=== PATIENT | male | born 1945 | race Caucasian/White ===

== ENCOUNTER 2020-09-02 06:34 | Day surgery (SDC) | payer MEDICARE ==
[~2020-09-02] VITALS: Ht 177.8 cm; Wt 107.2 kg
--- NOTE | ~2020-09-02 | HEMODYNAMI ---
PATIENT:SAAD CAI MEDICAL RECORD: [id number] : 49 LOCATION:[facility] ADMISSION DATE: 09/02/20 Generatedon:18:38 Patient name: SAAD CAI Patient #: [id number] SSN: [id number] : 1945 Date of study: 09/02/2020 Page: Of Hemodynamic Procedure Report Patient Data Patient Demographics Procedure consent was obtained First Name: SAAD Gender: Male Last Name: AYALA : 1945 Middle Initial: H Age: 75 year(s) Patient #: [id number] Race: Unknown SSN: [id number] Additional ID: [id number] Contact details [address]: [address] [place] [address] State: [place] City: [place] Zip code: [address] Past Medical History Allergies Allergen Reaction Date Comments Reported Other allergy 09/02/2020 Fish Oil Admission Admission Data Admission Date: 09/02/2020 Admission Time: 6:34 Arrival Date: 09/02/2020 Arrival Time: 0:00 Admit Source: Other Insurance Payor: Medicare [facility] #: [id number] Height (in.): 69.69 BSA: 2.23 (m2) Height (cm.): 177 BMI: 34.02 (kg/m2) Weight (lbs.): 235 Weight (kg.): 106.59 Lab Results Lab Result Date: 09/02/2020 Lab Result Time: 0:00 Biochemistry Name Units Result Min Max BUN mg/dl 11 --(-*--)-- 7 18 Creatinine mg/dl 0.8 --(-*--)-- 0.6 1.3 eGFR ml/min 90 --(*---)-- 90 120 NONAFRICAN CBC Name Units Result Min Max Hemoglobin g/dl 12.7 -*(----)-- 13.5 17.5 Procedure Procedure Types Cath Procedure Diagnostic Procedure LHC LHC w/Coronaries w/Grafts FFR/IVUS FFR Initial Aortic Root Angiography Sedation Charges Moderate Sedation 25-39 minutes PCI Procedure Hemochron ACT Test Procedure Description Procedure Date Procedure Date: 09/02/2020 Procedure Start Time: 8:04 Procedure End Time: 8:35 Procedure Staff Name Function Randy Baxter RN Nurse Sukhi Arnold MD Performing Physician Susana Mcclain RT Monitor Chandana Rausch RN Nurse Lisa Ryan RT Scrub Procedure Data Cath Procedure Fluoroscopy Diagnostic fluoroscopy Total fluoroscopy Time: 5.7 time: 5.7 min min Diagnostic fluoroscopy Total fluoroscopy dose: 897 dose: 897 mGy mGy Contrast Material Contrast Material Type Amount (ml) Isovue 300 139 Entry Location Entry Primary Successful Side Size Upsize Upsize Entry Closure Succes sful Closure Location (Fr) 1 (Fr) 2 (Fr) Remarks Device Remarks Femoral Right 5 Fr 6 Fr artery Short Estimated blood loss: 10 ml Diagnostic catheters Device Type Used For End Catheter Placement MULTIPACK JL 4.0 5Fr Procedure catheter DIAGNOSTIC AR MOD 5Fr Procedure Catheter ([id number]) DIAGNOSTIC IM 5Fr Procedure catheter ([id number]) MULTIPACK Pigtail 5 Fr Ventriculography catheter Procedure Complications No complications Procedure Medications Medication Administration Route Dosage Oxygen etCO2 Nasal cannula 2 l/min Lidocaine 2% added to field 20 Heparin Flush Bag added to field 2 bags (1000units/500ml NS) 0.9% NaCl I.V. 100 ml/hr Fentanyl I.V. 50 mcg Versed I.V. 1 mg Versed I.V. 1 mg Fentanyl I.V. 50 mcg Fentanyl I.V. 50 mcg Versed I.V. 1 mg Heparin Bolus I.V. 6000 units Hemodynamics Rest BSA: 2.23 (m2) HGB: 12.7 (g/dl) O2 Consumption: Estimated: 258.49 (ml/min) O2 Co nsumption indexed: Estimated:115.91 (ml/min/m) Heart Rate: 72 (bpm) Pressure Samples Time Site Value (mmHg) Purpose Heart Use Rate(bpm) 8:18 LV 165/5,24 Snapshot 82 Gradients Valve Time Site Site Mean SEP/DFP Peak To Heart Use 1 2 (mmHg) (sec/min) Peak Rate (mmHg) (bpm) Aortic 8:19 LV AO 85 Snapshots Pre Cath Intra NCS Post Cath Vital Signs Time Heart Resp SPO2 etCO2 NIBP (mmHg) Rhythm Pain Sedation Rate (ipm) (%) (mmHg) Status Level (bpm) 7:47:08 71 17 100 35.4 192/94(148) NSR 0 (11) 10(A) , No pain 7:51:44 70 13 100 27.9 182/85(141) NSR 0 (11) 10(A) , No pain 7:56:20 69 11 100 18.1 174/81(135) NSR 0 (11) 9(A) , No pain 8:00:40 67 11 99 38.5 151/81(136) NSR 0 (11) 9(A) , No pain 8:05:07 66 10 100 20.4 166/82(146) NSR 0 (11) 9(A) , No pain 8:09:33 72 10 97 40.8 154/78(98) NSR 0 (11) 9(A) , No pain 8:13:59 84 10 98 45.3 157/87(124) NSR 0 (11) 9(A) , No pain 8:18:28 80 10 99 20.4 155/85(110) NSR 0 (11) 9(A) , No pain 8:22:50 82 10 98 43 147/76(125) NSR 0 (11) 9(A) , No pain 8:27:10 83 11 99 39.2 153/80(115) NSR 0 (11) 9(A) , No pain 8:31:36 86 11 98 41.5 167/87(133) NSR 0 (11) 10(A) , No pain Medications Time Medication Route Dose Verified Delivered Reason Notes Effectiveness by by 7:45:54 Oxygen etCO2 2 Sukhi Randy used for Nasal l/min Clayton Baxter graduate teaching associate cannula 7:46:28 Lidocaine 2% added 20ml Sukhi Sukhi for local to vial Clayton Arnold MD anesthetic field 7:46:35 Heparin Flush added 2 Sukhi Sukhi used for Bag to bags Clayton Arnold MD procedure (1000units/500ml field NS) 7:46:47 0.9% NaCl I.V. 100 Sukhi Randy used for ml/hr Clayton Baxter graduate teaching associate 7:54:46 Fentanyl I.V. 50 Sukhi Randy for sedation mcg Clayton Baxter RN 7:54:54 Versed I.V. 1 mg Sukhi Randy for sedation Clayton Baxter RN 7:58:39 Versed I.V. 1 mg Sukhi Randy for sedation Clayton Baxter RN 7:58:44 Fentanyl I.V. 50 Sukhi Randy for sedation mcg Clayton Baxter RN 8:07:46 Fentanyl I.V. 50 Sukhi Randy for sedation mcg Clayton Baxter RN 8:07:51 Versed I.V. 1 mg Sukhi Randy for sedation Clayton Baxter RN 8:25:19 Heparin Bolus I.V. 6000 Sukhi Randy for verifi ed units Clayton Baxter RN anticoagulation per ramesh mondragoncorn grinder Log Time Note 7:28:10 Arrival Date: 09/02/2020 12:00:00 AM 7:28:11 Admit Source: Other 7:28:26 Insurance Payor : Medicare 7:28:35 Patient Weight : 235 lbs 7:28:40 Patient Height : 69.69 inches 7:45:00 Time tracking: Regular hours (M-F 7:00 - 5:00) 7:45:04 Plan of Care:Hemodynamics will remain stable., Cardiac rhythm will remain stable., Comfort level will be maintained., Respiratory function will remain adequate., Patient/ family verbilizes understanding of procedure., Procedure tolerated without complication., Recovers from procedure without complications.. 7:45:08 Patient received from Pre/Post Procedure Room to [facility] 1 Alert and oriented. Tansferred to table in Supine position. 7:45:44 Vital chart was started 7:45:54 Oxygen 2 l/min etCO2 Nasal cannula was administered by Randy Baxter RN; used for procedure; Verbal order read back and verified. 7:46:28 Lidocaine 2% 20ml vial added to field was administered by Sukhi Arnold MD; for local anesthetic; Verbal order read back and verified. 7:46:35 Heparin Flush Bag (1000units/500ml NS) 2 bags added to field was administered by Sukhi Arnold MD; used for procedure; Verbal order read back and verified. 7:46:47 0.9% NaCl 100 ml/hr I.V. was administered by Randy Baxter RN; used for procedure; Verbal order read back and verified. 7:51:26 Patient arrived from Pre/Post Procedure Room to CCL 1. Patient remains on bed/stretcher for procedure. 7:51:37 Signed procedure consent form obtained from patient. 7:51:38 Warm blankets applied, and j luis hugger turned on for patient comfort. 7:51:39 Correct patient and procedure confirmed by team. 7:51:39 ECG and BP/O2 sat monitors applied to patient. 7:51:41 Baseline sample Acquired. 7:51:46 Rhythm: sinus rhythm 7:51:48 Full Disclosure recording started 7:51:55 H&P Date Dictated: 09/02/2020 Within 30 days and on chart., H&P Addendum completed by physician on day of procedure. (MUST COMPLETE FOR ALL OUTPATIENTS). 7:51:58 Pre-procedure instructions explained to patient. 7:52:01 Family in patients room. 7:52:15 Patient allergic to Other allergyFish Oil 7:52:21 Is the patient allergic to Iodine/contrast media? No. 7:52:22 Is patient on blood thinner?Yes 7:52:25 ACC The patient was administered the following blood thiners within the last 24 hours: ACCAspirin 7:52:28 Patient diabetic? No. 7:52:33 Snore? Yes 7:52:35 Sleep apnea? No 7:52:45 Dentures? No ? 7:52:55 IV patent on arrival in left forearm with 0.9% NaCl at O. 7:53:45 Lab Result : BUN 11 mg/dl 7:53:45 Lab Result : Creatinine 0.8 mg/dl 7:53:45 Lab Result : Hemoglobin 12.7 g/dl 7:53:45 Lab Result : eGFR NONAFRICAN 90 ml/min 7:53:51 Lab results completed and on chart. 7:53:57 Right groin area was prepped with chlora-prep and draped in sterile fashion 7:53:58 Sharps counted by scrub and verified by R.N. 7:54:03 Physician arrived 7:54:06 --------ALL STOP TIME OUT------ 7:54:07 Final Timeout: patient, procedure, and site verified with staff and physician. All members of the team are in agreement. 7:54:09 Right groin site verified by team. 7:54:13 Fire Safety Assessment: A--An alcohol-based skin anteseptic being used preoperatively., C--Open oxygen or nitrous oxide is being used., D--An ESU, laser, or fiber-optic light is being used. 7:54:17 1) 90+ Normal kidney functon but urine findings or structural abnormalities or genetic trait point to kidney disease. 7:54:20 Maximum allowable contrast dose (3.7 X eGFR X 0.75)250 ml. 7:54:25 Sedation plan: IV Moderate Sedation Medication:Versed, Fentanyl 7:54:46 Fentanyl 50 mcg I.V. was administered by Randy Baxter RN; for sedation; Verbal order read back and verified. 7:54:54 Versed 1 mg I.V. was administered by Randy Baxter RN; for sedation; Verbal order read back and verified. 7:55:09 Use device set Femoral Dx 7:58:39 Versed 1 mg I.V. was administered by Randy Baxter RN; for sedation; Verbal order read back and verified. 7:58:44 Fentanyl 50 mcg I.V. was administered by Randy Baxter RN; for sedation; Verbal order read back and verified. 7:59:45 Zero performed for pressure channel P1 8:03:53 Procedure started. 8:04:59 Local anesthetic to right femoral artery with Lidocaine 2% by Sukhi Arnold MD.INITIAL ACCESS ONLY 8:07:46 Fentanyl 50 mcg I.V. was administered by Randy Baxter RN; for sedation; Verbal order read back and verified. 8:07:51 Versed 1 mg I.V. was administered by Randy Baxter RN; for sedation; Verbal order read back and verified. 8:09:32 A 5 Fr sheath was inserted into the Right Femoral artery 8:09:41 ACIST Syringe (00224) opened to sterile field. 8:09:41 Bag Decanter () opened to sterile field. 8:09:42 Medline Cath Pack ([id number]) opened to sterile field. 8:09:50 A MULTIPACK JL 4.0 5Fr catheter was advanced over the wire and used for Procedure. 8:09:52 ACIST Hand Control (72212) opened to sterile field. 8:09:53 ACIST Manifold (53587) opened to sterile field. 8:09:53 DIAGNOSTIC Multipack 5Fr catheter set (NT7939) opened to sterile field. 8:10:03 SHEATH 5FR Glentana (CEV567) opened to sterile field. 8:10:04 EMERALD Guide Wire (502-044) opened to sterile field. 8:10:17 LCA angiography performed. 8:11:19 Catheter removed. 8:11:36 A DIAGNOSTIC AR MOD 5Fr Catheter (429356E) was advanced over the wire and used for Procedure. 8:12:27 RCA angiography performed. 8:12:50 SVG to RCA angiography performed. 8:14:04 SVG occluded 8:14:10 Catheter removed. 8:15:36 A DIAGNOSTIC IM 5Fr catheter (480430Y) was advanced over the wire and used for Procedure. 8:15:43 JOEL to LAD angiography performed. 8:17:09 Catheter removed. 8:17:24 A MULTIPACK Pigtail 5 Fr catheter was advanced over the wire and used for Ventriculography. 8:19:41 EF : 55 % 8:19:44 Aortic Root visualized 8:22:25 Catheter exchanged over wire. 8:24:03 TUBING High Pressure Extension Tubing (Arnold) (IF0669N) opened to sterile field. 8:24:03 SHEATH 6FR Glentana (YXW924) opened to sterile field. 8:24:04 GUIDE 6FR XBLAD 3.5 catheter ([id number]) opened to sterile field. 8:24:05 Hayfield OmniWire (51440) opened to sterile field. 8:24:06 INFLATOR Merit BasixCompak (PT0379) opened to sterile field. 8:24:15 Proceeding to intervention. 8:24:25 Sheath upsized to a 6 Fr Short. 8:24:50 6 Fr XBLAD3.5 guide catheter was inserted over the wire 8:24:56 IFR wire advanced. 8:25:19 Heparin Bolus 6000 units I.V. was administered by Randy Baxter RN; for anticoagulation; verified per ramesh mondragon Verbal order read back and verified. 8:27:45 Wire advanced across lesion. 8:28:01 pCirc lesion measured at .97 with IFR 8:28:54 Wire removed. 8:28:55 Guide catheter removed. 8:29:11 EXOSEAL 6Fr (EX600) opened to sterile field. 8:29:16 Procedure ended.(Physican Out) 8:29:30 Fluoroscopy time 05.70 minutes. 8:29:37 Fluoroscopy dose: 897 mGy 8:29:37 Flurop Dose total: 897 8:29:44 Dose Area Product 27640 mGy/cm. 8:29:49 Contrast amount:Isovue 300 139ml. 8:30:18 Insertion/operative site no bleeding no hematoma. 8:30:24 Post-op/insertion site Right Femoral artery dressed using a 4 x 4 and Tegaderm. 8:31:28 Post-procedure physical assessment completed. ASA score P 2 - A patient with mild systemic disease as per Sukhi Arnold MD. 8:31:31 Post procedure rhythm: unchanged. 8:31:38 Estimated blood loss: 10 ml 8:31:40 Post procedure instruction explained to patient.Patient verbalizes understanding. 8:32:30 Procedure type changed to Cath procedure, Diagnostic procedure, LHC, C w/Coronaries w/Grafts, FFR/IVUS, FFR Initial, Aortic Root Angiography, Sedation Charges, Moderate Sedation 25-39 minutes, PCI procedure, Hemochron ACT Test 8:32:34 Procedure and supply charges have been captured, reviewed, submitted and are correct. 8:33:57 Procedure Complication : No complications 8:34:01 Vital chart was stopped 8:34:51 ACT drawn and resulted at hi seconds. (normal therapeutic range 180-240 seconds). 8:35:09 [facility] Findings: MVD- manage w/ optimal medication therapy 8:35:15 See physician's report for complete and final results. 8:35:18 Report given to Pre/Post Procedure Room. 8:35:22 Patient transfered to Pre/Post Procedure Room with Stretcher. 8:35:25 Procedure ended. 8:35:25 Full Disclosure recording stopped 8:35:28 End room use (Document Last) Device Usage Item Name Manufacture Quantity Catalog Hospital Part Current Minimal L ot# / Number Charge Number Stock Stock Serial# Code ACIST Acist 1 93593 859429 383819 688106 20 Syringe Novalux (31577) Systems Inc Bag Microtek 1 357414 15090 002955 5 Decanter Medical Inc. () Medline Medline 1 [id number] 431468 74771 944717 5 Cath Pack ([id number]) MULTIPACK Cardinal 1 191432 5 JL 4.0 5Fr Health catheter ACIST Hand Acist 1 47950 834452 459803 634067 5 Control Medical (16629) Systems Inc ACIST Acist 1 86272 585443 859438 438289 5 Manifold Medical (43499) Systems Inc DIAGNOSTIC Cardinal 1 PH8824 990679 87083 942735 30 Multipack Health 5Fr catheter set (JN5276) SHEATH 5FR Terumo 1 DFH807 662816 197678 314935 5 Glentana (WNI631) EMERALD Cardinal 1 502-455 214362 723072 515500 5 Guide Wire Health (502-455) DIAGNOSTIC Cardinal 1 020047Q 051110 974430 574951 15 AR MOD 5Fr Health Catheter (512201H) DIAGNOSTIC Cardinal 1 129753N 493639 935707 933239 5 IM 5Fr Health catheter (052502C) MULTIPACK Cardinal 1 144820 5 Pigtail 5 Health Fr catheter TUBING High Merit 1 [id number] 147765 17493 583500 10 Pressure Medical Extension Tubing (Clayton) (PM8972G) SHEATH 6FR Terumo 1 GGS946 116629 031419 779127 40 Glentana (UMF663) GUIDE 6FR Cardinal 1 [id number] 321663 689081 014819 10 XBLAD 3.5 Health catheter (18494844) Hayfield Hayfield 1 8207862 809724 63219 9948 5 OmniWire (13588) INFLATOR Merit 1 TT8891 611639 640375 295661 15 [facility] Medical BasixCompak (NI5103) EXOSEAL 6Fr Cardinal 1 EX600 480362 911124 079538 10 (EX600) Health Signature Audit [place] Stage Time Signature Unsigned Intra-Procedure 09/02/2020 Susana Mcclain 8:37:00 AM RT(R) Intra-Procedure 09/02/2020 Chandana Rausch RN 8:37:24 AM Intra-Procedure 09/02/2020 Sukhi Arnold MD 8:38:01 AM [place] [id number] [place] [address]
[~2020-09-02 06:34] MED LIST: BAYER CHEWABLE81 MG PO; CHANTIX0.5 MG PO; CRESTOR40 MG PO; FLOMAX0.4 MG PO; MULTI-DAY VITAM1 TAB PO; NEXIUM40 MG PO; NITROQUICK0.4 MG SL; OS-CAL500 MG PO; TOPROL XL25 MG PO; VITAMIN C500 M1 PO
[2020-09-02] MEDS ORDERED: VITAMIN C WIT1000 MG PO (06:56)
[2020-09-02] MEDS ORDERED: NEXIUM20 MG PO (06:57)
[2020-09-02] MEDS ORDERED: CALCIUM 600 +1 EAC3 PO (06:58)
[2020-09-02] MEDS ORDERED: MELATONIN 10 M1 EACH PO (06:58)
[2020-09-02 07:19] VITALS: BP 133/76; Ht 177.8 cm; Wt 107.2 kg
[2020-09-02 07:27] LABS: BASOPHILS 0.2 % (0-2); EOSINOPHILS 8.1 % (0-7); HEMATOCRIT 39.6 % (42.0-54.0); HEMOGLOBIN 12.7 g/dL (13.5-17.5); IMMATURE GRANULOCYTES 0.4 % (0-5); LYMPHOCYTE ABS# 2.18 10x3/uL (1.32-3.57); MCH 27.2 pg (26.0-34.0); MCHC 32.1 g/dL (31.0-37.0); MCV 84.8 fL (80.0-100.0); MEAN PLATELET VOLUME 10.6 fL (7.4-10.4); MONOCYTES 10.7 % (2-11); NEUTROPHIL ABS# 2.11 10x3/uL (1.78-5.38); NEUTROPHILS 39.6 % (40-80); PLATELET COUNT 194 10x3/uL (130-400); RBC 4.67 10x6/uL (4.20-6.10); RDW 14.7 % (11.5-14.5); WBC 5.3 10x3/uL (4.8-10.8)
[2020-09-02 07:49] LABS: ALT (SGPT) 37 U/L (10-68); CALC OSMOLALITY 281 mosm/kg (275-300); CALCIUM 8.8 mg/dL (8.5-10.1); CARBON DIOXIDE 24.6 mmol/L (21.0-32.0); CHLORIDE - SERUM 107 mmol/L (98-107); CHOL - HDL RATIO 2.7 ratio (2.3-4.9); CHOLESTEROL, TOTAL 145 mg/dL (0-200); CREATININE - SERUM 0.8 mg/dL (0.6-1.3); GLUCOSE 96 mg/dL (74-106); HDL CHOLESTEROL 54 mg/dL (32-96); LDL CHOLESTEROL 76 mg/dL (0-100); LDL-HDL RATIO 1.4 ratio (1.5-3.5); POTASSIUM - SERUM 3.9 mmol/L (3.5-5.1); SODIUM 142 mmol/L (136-145); TRIGLYCERIDE 76 mg/dL (30-200); UREA NITROGEN 11 mg/dL (7-18); eGFR NON AFRICAN AMERICAN > 90 mL/min (90-120)
--- NOTE | 2020-09-02 08:45 | NUR ---
PT REC'D TO CATH RECOVERY ROOM 12 VIA STRETCHER. MONITORS ESTAB. AT BS. SEE TERRITORY ACCOUNT EXECUTIVE FLOWSHEETS. ALARMS ON AND C/L IN REACH.
--- NOTE | 2020-09-02 08:59 | NUR ---
ADMIN PO IMDUR PER MD ORDER, NO DIFFICULTY SWALLOWING. R GROIN SITE SOFT, C/D/I. NO S/S BLEEDING OR HEMATOMA. R LEG/FOOT WARM WITH PALP PULSES AND BRISK CAP REFILL.. URINAL PROVIDED - ASSISTING PT. ALARMS ON AND C/L IN REACH.
[2020-09-02] MEDS ORDERED: ISOSORBIDE MONO30 M1 PO (09:07)
--- NOTE | 2020-09-02 09:30 | NUR ---
VSS. PT RESTING QUIETLY. R GROIN SITE SOFT, NO S/S BLEEDING OR HEMATOMA. R LEG/FOOT WARM WITH PALP PULSES AND BRISK CAP REFILL. AT BS. ALARMS ON AND C/L IN REACH.
--- NOTE | 2020-09-02 10:15 | NUR ---
DR. LE IN TO SEE PT, UPDATE GIVEN AND QUESTIONS ANSWERED. R GROIN SITE SOFT, NO S/S BLEEDING OR HEMATOMA. PULSES PALP. VSS. ALARMS ON AND C/L IN REACH.
--- NOTE | 2020-09-02 10:39 | NUR ---
NEW PRESCRIPTION FOR IMDUR CALLED [facility] TO [facility], PER PT REQUEST.
--- NOTE | 2020-09-02 10:45 | NUR ---
PT VOIDED 300CC CLEAR, YELLOW URINE. R GROIN SITE SOFT, NO S/S BLEEDING OR HEMATOMA. R LEG/FOOT WARM WITH PALP PULSES AND BRISK CAP REFILL. PT DENIES PAIN OR NEEDS. ALARMS ON AND C/L IN REACH.
--- NOTE | 2020-09-02 11:00 | NUR ---
R GROIN SITE SOFT, NO S/S BLEEDING OR HEMATOMA. PULSES PALP. HOB ELEVATED. SANDWICH TRAY AND COFFEE PROVIDED. VSS. ALARMS ON AND C/L IN REACH.
--- NOTE | 2020-09-02 11:30 | NUR ---
PT ATE ALL OF SANDWICH, DENIES PAIN OR NEEDS. R GROIN SITE C/D/I. VSS. ALARMS ON AND C/L IN REACH.
--- NOTE | 2020-09-02 11:43 | NUR ---
R GROIN SITE SOFT, NO S/S BLEEDING. PULSES PALP. PIV D/C'D INTACT, DSG APPLIED.
--- NOTE | 2020-09-02 11:50 | NUR ---
ALL DISCHARGE INSTRUCTIONS REVIEWED WITH PT AND HIS , INCLUDING RESTRICTIONS, MEDS AND F/U APPT. BOTH VERBALIZE UNDERSTANDING. PT ALLOWED UP TO GET DRESSED WITH ASSISTING.
--- NOTE | 2020-09-02 12:05 | NUR ---
PT D/C'D VIA WC TO PRIVATE VEHICLE WITH ALL PAPERWORK AND BELONGINGS.
== END 2020-09-02 12:05 | disposition home or self-care (01) ==
LOC: D.CATH 06:34
PROVIDERS: ATTEND Internal Medicine Cardiovascular Disease
DX: I25.110 Atherosclerotic heart disease of native coronary artery with unstable angina pectoris (principal); I10 Essential (primary) hypertension; E78.5 Hyperlipidemia, unspecified; Z72.0 Tobacco use; R07.9 Chest pain, unspecified

== ENCOUNTER 2020-09-29 08:18 | Day surgery (SDC) | payer MEDICARE ==
[~2020-09-29] VITALS: Ht 177.8 cm; Wt 108.4 kg
[~2020-09-29 08:18] MED LIST changes: +CALCIUM 600 +1 EAC3 PO; +ISOSORBIDE MONO30 M1 PO; +MELATONIN 10 M1 EACH PO; +NEXIUM20 MG PO; +VITAMIN C WIT1000 MG PO
[2020-09-29 08:43] LABS: BASOPHILS 0.5 % (0-2); EOSINOPHILS 7.4 % (0-7); HEMATOCRIT 39.4 % (42.0-54.0); LYMPHOCYTES 36.3 % (15-50); MCH 26.9 pg (26.0-34.0); MCHC 32.9 g/dL (31.0-37.0); MEAN PLATELET VOLUME 7.9 fL (7.4-10.4); MONOCYTES 11.6 % (2-11); NEUTROPHILS 44.2 % (40-80); PLATELET COUNT 224 10x3/uL (130-400); RBC 4.81 10x6/uL (4.20-6.10); RDW 15.4 % (11.5-14.5); WBC 5.8 10x3/uL (4.8-10.8)
[2020-09-29 08:52] LABS: CALC OSMOLALITY 283 mosm/kg (275-300); CALCIUM 8.6 mg/dL (8.5-10.1); CARBON DIOXIDE 28.8 mmol/L (21.0-32.0); CHLORIDE - SERUM 107 mmol/L (98-107); CREATININE - SERUM 0.9 mg/dL (0.6-1.3); GLUCOSE 95 mg/dL (74-106); POTASSIUM - SERUM 4.2 mmol/L (3.5-5.1); SODIUM 142 mmol/L (136-145); UREA NITROGEN 16 mg/dL (7-18); eGFR NON AFRICAN AMERICAN 88 mL/min (90-120)
[2020-09-29 09:49] VITALS: BP 146/69; Ht 177.8 cm; Wt 108.4 kg
--- NOTE | 2020-09-29 16:47 | NUR ---
1630 MEDICATED WITH FLOMAX. PT TAKES IT AT HOME, IVF OPEN
--- NOTE | 2020-09-29 17:20 | NUR ---
1720 BLADDER SCAN DONE 376 ML NOTED
--- NOTE | 2020-09-29 18:04 | NUR ---
1805 UNABLE TO VOID. BLADDER SCAN 381ML LARGE 20 OZ CUP OF WATER GIVEN TO PT
--- NOTE | 2020-09-29 18:26 | NUR ---
1825 MEDICATED FOR PAIN MODERATE
--- NOTE | 2020-09-29 18:58 | NUR ---
185 BLADDER SCAN 474 ML PT UNABLE TO URINATE. DR FAIRBANKS PAGED.
--- NOTE | 2020-09-29 19:35 | NUR ---
1914 INSERTED 16F JOSEPH CATHERTER. INTRAVERTED PENIS. 400ML DON URINE NOTED. PT INSTRUCTED ON CARE OF CATHETER AND URINAL GIVEN TO EMPTY AND ENCOURAGED FLUIDS UNTIL URINE LIGHT YELLOW IN COLOR. INSTRUCTED TO RETURN TO DR CLEVELAND OFFICE IN 2 DAYS FOR CATH REMOVAL.
--- NOTE | 2020-11-01 14:25 | OP ---
PATIENT NAME: SAAD CAI MEDICAL RECORD: [id number] :49 LOCATION:D.OPS ADMISSION DATE: SURGEON: KECIA FAIRBANKS MD DATE OF OPERATION: 09/29/2020 PREOPERATIVE DIAGNOSES: 1. Right upper quadrant pain. 2. Chronic cholecystitis. POSTOPERATIVE DIAGNOSES: 1. Right upper quadrant pain. 2. Chronic cholecystitis. 3. Hepatomegaly. PROCEDURE: 1. Laparoscopic cholecystectomy. 2. Intraoperative cholangiography without immediate surgeon interpretation. 3. 14-gauge core needle biopsy. SURGEON: Kecia Fairbanks MD BUSINESS DEVELOPMENT INTERN: None. BLOOD LOSS: Minimal. ANESTHESIA: General. COMPLICATIONS: None. The risks, possible complications, and alternatives to the procedure were explained to the patient. He elects to proceed. OPERATIVE COURSE: The patient was conveyed to the operating room electively on 09/29/2020. General anesthesia was induced by the anesthesia staff. The abdomen was sterilely prepped and draped. A small skin incision was accomplished in the left upper quadrant. The Veress needle was inserted through the skin incision into the peritoneal cavity. CO2 insufflation was begun. Once a sufficient pneumoperitoneum had been achieved, a 12 mm trocar was inserted through an incision at the umbilicus. Two more trocars were inserted. These were 5-mm trocars, one was inserted in the right upper quadrant, one was inserted far laterally in the right upper quadrant. During insertion of the Veress needle and all trocars, there appeared to had been no injury to the bowels, any intraperitoneal or retroperitoneal structures. An abdominal survey was undertaken. The indication for the liver biopsy was hepatomegaly. Under laparoscopic guidance, I percutaneously accessed the right upper quadrant utilizing an 18-gauge Kibin core needle liver biopsy device. Cores were obtained over the convexity of the liver. The biopsy sites were made hemostatic with electrocautery. I then grasped the gallbladder. I advanced a cholangiogram trocar. I punctured the fundus of the gallbladder. I aspirated bile. I then injected dye. Under real time fluoroscopy, static images were obtained. These were cholangiographic images and they were sent to the radiologist for interpretation. I then aspirated bile and removed the cholangiogram trocar. OPERATIVE REPORT [id number] SAAD CAI The gallbladder was grasped and retracted cephalad. The infundibulum was grasped and retracted laterally. Blunt dissection was begun in the triangle of Calot. One cystic artery and one cystic duct were identified. These were clipped multiply and divided between clips. The gallbladder was then excised from its bed in the liver. It was placed within a bag retrieval device and was withdrawn through the umbilical fascial defect. A 12 mm trocar was replaced and the abdomen reinsufflated. I irrigated and aspirated the right upper quadrant. There was no bleeding even at low pressure of 8. The 12-mm trocar was removed. The fascia at the umbilicus was closed with the Mike-Roosevelt suture closure device and 0 Vicryl sutures. The other trocars were removed. The skin at the umbilicus was closed with interrupted 4-0 Vicryl Rapide sutures. The other trocar sites were closed with interrupted intracuticular 3-0 Vicryls. Benzoin and Steri-Strips were applied. The patient was then extubated and conveyed to post-anesthesia care unit where he was in stable condition. TRANSINT:[id number] Voice Confirmation ID: [id number] DOCUMENT ID: [id number] KECIA FAIRBANKS MD at 1425 CC: [id number] DICTATION DATE: 10/31/20 1501 ASSISTANT PROFESSOR OF RELIGION: 10/31/20 2043 [facility] 09/29/20 [facility] [address] [place] [address]
== END 2020-09-29 19:35 | disposition home or self-care (01) ==
LOC: D.OPS 08:18
PROVIDERS: Anesthesiology; ATTEND Surgery
DX: R10.11 Right upper quadrant pain (principal); K81.9 Cholecystitis, unspecified; R16.0 Hepatomegaly, not elsewhere classified; K21.9 Gastro-esophageal reflux disease without esophagitis; I10 Essential (primary) hypertension; E78.5 Hyperlipidemia, unspecified

== ENCOUNTER 2020-10-07 00:12 | Emergency (ER) | payer MEDICARE ==
[~2020-10-07] VITALS: Ht 177.8 cm; Wt 104.5 kg
[2020-10-07 00:22] VITALS: Ht 177.8 cm; Wt 104.5 kg
[2020-10-07 00:58] LABS: BASOPHILS 0.6 % (0-2); EOSINOPHILS 3.1 % (0-7); HEMOGLOBIN 12.5 g/dL (13.5-17.5); MCH 26.5 pg (26.0-34.0); MCHC 32.1 g/dL (31.0-37.0); MCV 82.4 fL (80.0-100.0); MEAN PLATELET VOLUME 8.1 fL (7.4-10.4); MONOCYTES 8.7 % (2-11); NEUTROPHILS 73.6 % (40-80); PLATELET COUNT 229 10x3/uL (130-400); RBC 4.73 10x6/uL (4.20-6.10); RDW 15.5 % (11.5-14.5); WBC 10.6 10x3/uL (4.8-10.8)
[2020-10-07 01:05] LABS: CALC OSMOLALITY 283 mosm/kg (275-300); CALCIUM 8.3 mg/dL (8.5-10.1); CARBON DIOXIDE 28.1 mmol/L (21.0-32.0); CHLORIDE - SERUM 104 mmol/L (98-107); CREATININE - SERUM 0.9 mg/dL (0.6-1.3); GLUCOSE 128 mg/dL (74-106); POTASSIUM - SERUM 4.2 mmol/L (3.5-5.1); SODIUM 141 mmol/L (136-145); UREA NITROGEN 14 mg/dL (7-18); eGFR NON AFRICAN AMERICAN 88 mL/min (90-120)
[2020-10-07 01:21] LABS: ALBUMIN 3.5 g/dL (3.4-5.0); ALKALINE PHOSPHATASE 83 U/L (30-120); ALT (SGPT) 38 U/L (10-68); BILIRUBIN - TOTAL 0.33 mg/dL (0.2-1.3); LIPASE 114 U/L (73-393); PRO BNP 264 pg/mL (0-125); PROTEIN - SERUM 7.4 g/dL (6.4-8.2)
[2020-10-07 01:22] LABS: TROPONIN-I < 0.017 ng/mL (0.000-0.060)
[2020-10-07] MEDS ORDERED: HYDROCODON-ACE1 EAC7 PO (05:47)
[2020-10-07] MEDS ORDERED: COLACE100 MG PO (05:47)
[2020-10-07 06:05] VITALS: BP 124/60
== END 2020-10-07 06:02 | disposition home or self-care (01) ==
LOC: D.ER 00:12
PROVIDERS: Family Medicine
DX: I25.10 Atherosclerotic heart disease of native coronary artery without angina pectoris (principal); J18.9 Pneumonia, unspecified organism; G89.18 Other acute postprocedural pain; I10 Essential (primary) hypertension; E78.5 Hyperlipidemia, unspecified; Z95.1 Presence of aortocoronary bypass graft; K21.9 Gastro-esophageal reflux disease without esophagitis; N40.0 Benign prostatic hyperplasia without lower urinary tract symptoms